=== PATIENT | female | born 1960 | race African-American/Black ===

== ENCOUNTER 2020-05-19 14:36 | Emergency (ER) | payer MEDICAID ==
[~2020-05-19] VITALS: Ht 180.3 cm; Wt 107.0 kg
[2020-05-19] MEDS ORDERED: ACETAMINOPHEN 325MG TABLET PO ONE (16:00)
[2020-05-19] MEDS ORDERED: LIDOCAINE 5% PATCH TOP SCH (16:00)
[2020-05-19 16:14] LABS: CLARITY URINE CLEAR (CLEAR); COLOR URINE YELLOW (YELLOW); KETONES URINE NEGATIVE (NEGATIVE); LEUKOCYTE ESTERASE URINE NEGATIVE (NEGATIVE); NITRITE URINE NEGATIVE (NEGATIVE); OCCULT BLOOD URINE NEGATIVE (NEGATIVE); PROTEIN URINE NEGATIVE (NEGATIVE); SPECIFIC GRAVITY URINE 1.027 (1.005-1.030)
[2020-05-19] MEDS ORDERED: LIDO1ADH71 TOP (16:22)
[2020-05-19 16:41] VITALS: BP 175/76
== END 2020-05-19 16:44 | disposition home or self-care (01) ==
LOC: ER 14:36
DX: T14.8XXA Other injury of unspecified body region, initial encounter (principal); I10 Essential (primary) hypertension; X58.XXXA Exposure to other specified factors, initial encounter; Y93.89 Activity, other specified; Y92.89 Other specified places as the place of occurrence of the external cause; Y99.8 Other external cause status
CPT/HCPCS: 81003; 87086; 99283; Z7610